=== PATIENT | male | born 1930 | race Caucasian/White ===

== ENCOUNTER 2019-09-05 10:31 | Inpatient (IN) | payer MEDICARE, OTHER ==
[~2019-09-05] VITALS: Ht 160 cm; Wt 63.5 kg
--- NOTE | 2019-09-05 19:30 | NUR ---
Patient received in bed, with family at bedside. Alert and oriented x 4. No C/O pain or SOB at this time. Original dressing intact on left hip. Skin tear on left hand. Dressing changed and wound care consult ordered. Patient medication sent to pharmacy. MRSA swab done. Urinal at bedside for bathroom needs. Call light and frequently used times within reach. Will continue to monitor for improvement.
[2019-09-05] MEDS ORDERED: OMEG-153 PO (19:56)
[2019-09-05] MEDS ORDERED: TRAM50TA2 PO (19:56)
[2019-09-05] MEDS ORDERED: AMLO5TAB9 PO (19:56)
[2019-09-05] MEDS ORDERED: LIDO1ADH44 TP (19:56)
[2019-09-05] MEDS ORDERED: GABA-532 PO (19:56)
[2019-09-05] MEDS ORDERED: DOCU100C36 PO (19:56)
[2019-09-05] MEDS ORDERED: MULT-1196 PO (19:56)
[2019-09-05] MEDS ORDERED: FLUT1DIS27 IH (19:56)
[2019-09-05] MEDS ORDERED: TIOT18CA3 IH (19:56)
[2019-09-05] MEDS ORDERED: UBID10CA4 PO (19:56)
[2019-09-05] MEDS ORDERED: METH500T6 PO (19:56)
[2019-09-05] MEDS ORDERED: OLME20TA13 PO (19:56)
[2019-09-05] MEDS ORDERED: OMEP20TA20 PO (19:56)
[2019-09-05] MEDS ORDERED: ACET-73 PO (19:56)
[2019-09-05] MEDS ORDERED: POTA8TAB3 PO (19:56)
[2019-09-05] MEDS ORDERED: ENOX40DI SQ (19:56)
[2019-09-05 20:00] VITALS: BP 100/65
[2019-09-05] MEDS ORDERED: METHOCARBAMOL 500 MG TABLET PO PRN (21:45)
[2019-09-06 05:53] VITALS: BP 137/63
[2019-09-06] MEDS: ACETAMINOPHEN 325 MG TABLET PO PRN ×2 (05:58→21:52)
[2019-09-06] MEDS: AMLODIPINE 5 MG TABLET PO SCH ×2 (08:06→17:24)
[2019-09-06] MEDS: DOCUSATE SODIUM 100 MG CAPSULE PO SCH ×2 (08:06→17:23)
[2019-09-06] MEDS ORDERED: Medication Not On Formulary EA (Potassium Chloride (Klor-Con 8) 8 MEQ) PO SCH (09:00)
[2019-09-06] MEDS ORDERED: Medication Not On Formulary EA (Salmon Oil/Omega-3 Fatty Acids (Fish Oil 500 Mg Softgel) PO SCH (09:00)
[2019-09-06] MEDS ORDERED: Medication Not On Formulary EA (Multivit-Min/FA/Lycopen/Lutein (Centrum Silver Men Table PO SCH (09:00)
[2019-09-06] MEDS ORDERED: FLUTICASONE/SALMETEROL 100/50 1 INH DISK.W.DEV IH SCH (09:00)
[2019-09-06] MEDS ORDERED: MULTIVIT, IRON, MIN NO. 8, FA TABLET PO SCH (09:00)
[2019-09-06] MEDS: OMEGA-3 FATTY ACIDS/FISH OIL CAPSULE PO SCH (09:17)
[2019-09-06] MEDS: FLUTICASONE/VILANTEROL 1 EACH BLST.W.DEV INH SCH (09:17)
[2019-09-06 09:41] LABS: BASOPHILS % (AUTO) 0.6 % (0.0-2.0); EOSINOPHILS # (AUTO) 0.3 K/uL (0.0-0.7); EOSINOPHILS % (AUTO) 6.7 % (0.0-7.0); HEMATOCRIT 28.3 % (36.7-47.1); HEMOGLOBIN 9.5 g/dL (12.5-16.3); LYMPHOCYTES # (AUTO) 1.1 K/uL (20.0-40.0); LYMPHOCYTES % (AUTO) 23.5 % (20.5-51.5); MEAN CORPUSCULAR HGB CONC 33 g/dL (32.5-36.3); MEAN CORPUSCULAR VOLUME 92.8 fL (73.0-96.2); MONOCYTES # (AUTO) 0.5 K/uL (2.0-10.0); MONOCYTES % (AUTO) 10.3 % (0.0-11.0); NEUTROPHILS # (AUTO) 2.9 K/uL (1.8-8.9); NEUTROPHILS % (AUTO) 58.9 % (38.5-71.5); PLATELET COUNT (AUTO) 218 K/uL (152-348); RED BLOOD CELL COUNT(AUTO) 3.05 MIL/uL (4.06-5.63); WHITE BLOOD COUNT (AUTO) 4.9 K/uL (3.6-10.2)
[2019-09-06 09:58] LABS: THYROID STIMULATING HORMONE 0.771 mIU/mL (0.358-3.740)
[2019-09-06] MEDS ORDERED: LAMISIL TOP PRN (10:00)
[2019-09-06 10:16] LABS: ALANINE AMINOTRANSFERASE 28 U/L (16-63); ALKALINE PHOSPHATASE 172 U/L (50-136); ASPARTATE AMINOTRANSFERASE 29 U/L (15-37); BILIRUBIN,TOTAL 0.5 mg/dL (0.2-1.0); CARBON DIOXIDE 25 mmol/L (21-32); CHLORIDE 102 mmol/L (98-107); CHOLESTEROL 156 mg/dL (<200); GLUCOSE 105 mg/dL (74-106); HDL CHOLESTEROL 40 mg/dL (40-60); MAGNESIUM 1.9 mg/dL (1.8-2.4); PHOSPHOROUS 3.5 mg/dL (2.5-4.9); POTASSIUM 4.2 mmol/L (3.5-5.1); TOTAL PROTEIN, SERUM 5.9 g/dL (6.4-8.2); TRIGLYCERIDES 82 MG/DL (30-150); UREA NITROGEN, BLOOD 16 mg/dL (7-18)
[2019-09-06] MEDS ORDERED: ASPIRIN 81 MG TAB.CHEW PO ONE (11:00)
[2019-09-06] MEDS ORDERED: Z GUARD REMEDY PASTE 57 GM TUBE TOP PRN (11:45)
--- NOTE | 2019-09-06 11:54 | NUR ---
WOUND CARE CONSULT: PT PRESENTS WITH LEFT HIP DRESSING WHICH IS DRY AND INTACT WITH SOME SHADOW AT DISTAL EDGE, NO SURROUNDING REDNESS, PRESENT ON ADMISSION. PT ALSO NOTED TO HAVE LEFT HAND SKIN TEAR, PRESENT ON ADMISSION. PERIANAL AREA AND GLUTEAL CREASE SHOW SOME SKIN IRRITATION. RECOMMENDATIONS MADE FOR WOUND CARE AND SKIN PROTECTION. DEFER TO SURGEON FOR SURGICAL SITE. WILL SEE PRN. PT IS CONTINENT AND INDEPENDENT WITH BED MOBILITY. CURRENT TRACIE SCORE IS 17. Addendum: 09/06/19 at 1156 by RYAN WELCH RN Amended: Links added.
--- NOTE | 2019-09-06 12:07 | NUR ---
Patient seen and examined by wound nurse with for left hand skin tear/ avulsion. ordered xeroform and covered with bordered gauze. will continue monitor
--- NOTE | 2019-09-06 12:09 | NUR ---
Patient wound nurse ordered Z-guard for crease in sacrum for protection. skin intact. will continue monitor
[2019-09-06] MEDS: Z GUARD REMEDY PASTE 57 GM TUBE TOP SCH ×2 (12:10→20:58)
[2019-09-06] MEDS: POTASSIUM CHLORIDE 8 MEQ TAB.PRT.SR PO SCH (12:15)
[2019-09-06 15:50] VITALS: BP 137/61
--- NOTE | 2019-09-06 16:13 | NUR ---
INTERDISCIPLINARY TEAM CONFERENCE
[2019-09-06] MEDS: DIFLUPREDNATE RIGHTEYE SCH (17:24)
[2019-09-06] MEDS ORDERED: PATIENT MAY USE OWN MED- MD OK PO SCH (18:45)
[2019-09-06 20:30] VITALS: BP 126/61
[2019-09-06] MEDS: ATORVASTATIN 40 MG TABLET PO SCH (20:40)
[2019-09-06] MEDS: GABAPENTIN 100 MG CAPSULE PO SCH (20:41)
[2019-09-06] MEDS: CENTRUM SILVER PO SCH (20:41)
[2019-09-06] MEDS: RIVAROXABAN 10 MG TABLET PO SCH (20:43)
[2019-09-06] MEDS: COENZYME Q10 200 MG PO SCH (20:43)
[2019-09-06] MEDS: [UNRECOGNIZED DRUG - OTHER] PO SCH (20:55)
[2019-09-06] MEDS ORDERED: ENOXAPARIN SODIUM 40 MG/0.4 ML DISP.SYRIN SQ SCH (21:00)
[2019-09-06] MEDS ORDERED: FLUTICASONE/SALMETEROL 250/50 INHALER INH SCH (21:00)
--- NOTE | 2019-09-07 05:29 | NUR ---
Patient alert and oriented x4. compliant with care and meds. 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 tolerated po meds well. needs attended. voiding in urinal. fall precautions maintained. siderails up for safety. right hip dressing clean dry and intact. will monitor patient.
[2019-09-07 05:51] VITALS: BP 117/66
[2019-09-07] MEDS: PRILOSEC 20 MG PO SCH (06:21)
--- NOTE | 2019-09-07 07:24 | NUR ---
Nurse Notes: received report from the night nurse, Trudi Diehl RN, Patient is asleep, in no respiratory distress, No complaints of pain given.
[2019-09-07 07:30] VITALS: BP 124/60
[2019-09-07] MEDS: ACETAMINOPHEN 325 MG TABLET PO PRN (08:20)
--- NOTE | 2019-09-07 08:20 | NUR ---
Nurse Notes:' medicated for pain earlier with tylenol
[2019-09-07] MEDS: LIDOCAINE 5% PATCH TD SCH (08:27)
[2019-09-07] MEDS ORDERED: CENTRUM SILVER PO SCH (09:00)
[2019-09-07] MEDS: DOCUSATE SODIUM 100 MG CAPSULE PO SCH ×2 (09:00→17:00)
[2019-09-07] MEDS: CENTRUM SILVER PO SCH ×2 (09:31→21:25)
[2019-09-07] MEDS: AMLODIPINE 5 MG TABLET PO SCH ×2 (09:31→17:42)
[2019-09-07] MEDS: ASPIRIN EC 81 MG TABLET.DR PO SCH (09:31)
[2019-09-07] MEDS: [UNRECOGNIZED DRUG - OTHER] PO SCH (09:32)
[2019-09-07] MEDS: POTASSIUM CHLORIDE 8 MEQ TAB.PRT.SR PO SCH (09:32)
[2019-09-07] MEDS: OMEGA-3 FATTY ACIDS/FISH OIL CAPSULE PO SCH (09:32)
[2019-09-07] MEDS: DIFLUPREDNATE RIGHTEYE SCH ×2 (09:35→17:43)
[2019-09-07] MEDS: FLUTICASONE/VILANTEROL 1 EACH BLST.W.DEV INH SCH ×2 (09:37→09:38)
[2019-09-07] MEDS: Z GUARD REMEDY PASTE 57 GM TUBE TOP SCH ×2 (09:41→21:22)
[2019-09-07 16:00] VITALS: BP 126/61
--- NOTE | 2019-09-07 19:35 | NUR ---
Nurse Notes: Report given to night nurse Rock RN, dressing intact left hip, lidocaine patches needs to be removed around 9 pm, off 12 hour off 12 hours. is at the bedside. Pain klevel 1/10, to zero.
[2019-09-07 19:58] VITALS: BP 134/57
[2019-09-07] MEDS: PATIENT'S OWN MEDICATION INH SCH (20:36)
[2019-09-07] MEDS: COENZYME Q10 200 MG PO SCH (21:22)
[2019-09-07] MEDS: ATORVASTATIN 40 MG TABLET PO SCH (21:22)
[2019-09-07] MEDS: [UNRECOGNIZED DRUG - OTHER] PO SCH (21:23)
[2019-09-07] MEDS: GABAPENTIN 100 MG CAPSULE PO SCH (21:23)
[2019-09-07] MEDS: RIVAROXABAN 10 MG TABLET PO SCH (21:27)
[2019-09-08 04:50] VITALS: BP 128/68
[2019-09-08] MEDS: PRILOSEC 20 MG PO SCH (06:26)
[2019-09-08 08:00] VITALS: BP 128/64
[2019-09-08] MEDS: ASPIRIN EC 81 MG TABLET.DR PO SCH (08:54)
[2019-09-08] MEDS: AMLODIPINE 5 MG TABLET PO SCH ×2 (08:55→17:06)
[2019-09-08] MEDS: PATIENT'S OWN MEDICATION INH SCH ×2 (08:55→20:54)
[2019-09-08] MEDS: DOCUSATE SODIUM 100 MG CAPSULE PO SCH ×2 (08:56→17:05)
[2019-09-08] MEDS: [UNRECOGNIZED DRUG - OTHER] PO SCH (08:57)
[2019-09-08] MEDS: POTASSIUM CHLORIDE 8 MEQ TAB.PRT.SR PO SCH (08:57)
[2019-09-08] MEDS: LIDOCAINE 5% PATCH TD SCH (08:58)
[2019-09-08] MEDS: OMEGA-3 FATTY ACIDS/FISH OIL CAPSULE PO SCH (08:58)
[2019-09-08] MEDS: DIFLUPREDNATE RIGHTEYE SCH ×2 (08:58→17:07)
[2019-09-08] MEDS: Z GUARD REMEDY PASTE 57 GM TUBE TOP SCH ×2 (08:59→20:49)
[2019-09-08] MEDS: CENTRUM SILVER PO SCH ×2 (08:59→20:51)
[2019-09-08] MEDS: ACETAMINOPHEN 325 MG TABLET PO PRN ×2 (09:46→22:04)
--- NOTE | 2019-09-08 15:38 | NUR ---
INDIVIDUALIZE OVERALL PLAN OF CARE
--- NOTE | 2019-09-08 17:46 | NUR ---
patient is alert, oriented x4, no distress noted, participated with PT,OT, tolerated well
[2019-09-08 17:57] VITALS: BP 134/61
--- NOTE | 2019-09-08 19:40 | NUR ---
Patient received in bed, AAO x4. Not in acute distress or SOB. Able to make needs known. On room air. No Complain of pain at this time. His at the bedside. Physical assessment done. Fall prevention observed. Safety measures maintained. Bed in low and lock position, alarm on, side rails up x2 for safety. Call light and frequently used items within reach. Continue to monitor.
[2019-09-08] MEDS: ATORVASTATIN 40 MG TABLET PO SCH (20:48)
[2019-09-08] MEDS: GABAPENTIN 100 MG CAPSULE PO SCH (20:49)
[2019-09-08] MEDS: [UNRECOGNIZED DRUG - OTHER] PO SCH (20:50)
[2019-09-08] MEDS: COENZYME Q10 200 MG PO SCH (20:51)
[2019-09-08] MEDS: RIVAROXABAN 10 MG TABLET PO SCH (20:55)
[2019-09-08 21:45] VITALS: BP 146/60
--- NOTE | 2019-09-08 21:50 | NUR ---
Patient asked for blood pressure medication Norvasc 5 mg tab that was due at 1700, stated, "I don't have my blood pressure med at 5 pm". Checked the medication record on the computer and reassured patient that he already had it at 1722. Rechecked his BP:133/60. Explained about his PRN medication if it is needed. Patient didn't get convinced, started yelling and fighting. Tried to make him calm, no success, insisted he wanted Norvasc. Contacted [facility] on-call, Demetrius PHOTO COLORER mentioned no extra dose and he will talk to patient tomorrow. Explained everything again, still agitated, but able to be convinced. Continue monitor.
[2019-09-09 04:00] VITALS: BP 128/60
[2019-09-09] MEDS: PRILOSEC 20 MG PO SCH (06:13)
[2019-09-09] MEDS: PATIENT'S OWN MEDICATION INH SCH ×2 (07:57→20:19)
[2019-09-09] MEDS: FLUTICASONE/VILANTEROL 1 EACH BLST.W.DEV INH SCH (08:05)
[2019-09-09] MEDS: ASPIRIN EC 81 MG TABLET.DR PO SCH (08:06)
[2019-09-09] MEDS: LIDOCAINE 5% PATCH TD SCH (08:06)
[2019-09-09] MEDS: DOCUSATE SODIUM 100 MG CAPSULE PO SCH ×2 (08:06→16:40)
[2019-09-09] MEDS: OMEGA-3 FATTY ACIDS/FISH OIL CAPSULE PO SCH (08:07)
[2019-09-09] MEDS: POTASSIUM CHLORIDE 8 MEQ TAB.PRT.SR PO SCH (08:07)
[2019-09-09] MEDS: AMLODIPINE 5 MG TABLET PO SCH ×2 (08:07→16:40)
[2019-09-09] MEDS: DIFLUPREDNATE RIGHTEYE SCH ×2 (08:07→16:41)
[2019-09-09] MEDS: CENTRUM SILVER PO SCH ×2 (08:08→21:15)
[2019-09-09] MEDS: Z GUARD REMEDY PASTE 57 GM TUBE TOP SCH ×2 (08:09→21:24)
[2019-09-09] MEDS: ACETAMINOPHEN 325 MG TABLET PO PRN ×2 (10:30→23:20)
[2019-09-09 10:36] VITALS: BP 118/55
--- NOTE | 2019-09-09 13:15 | NUR ---
PATIENT STILL NOTED WITH YELLING, AND SCREAMING ABOUT HIS MEDICATIONS ARE NOT GIVEN THE WAY HE WANTS, HAD A LENGTHY TALK WITH PATIENT IN PRESENCE OF HIS REGARDING HIS MEDICATIONS PREFERENCES. REMINDED PATIENT THAT NORVASC WAS GIVEN TO HIM YESTERDAY TWICE A DAY ORDERED, THE EVENING DOSE WAS GIVEN WHILE HIS WAS PRESENT DINNER TIME, AND BEFORE THE MEDICATION WAS GIVEN, AND PATIENT BOTH UNDERSTOOD WHAT WAS GIVEN, PATIENT STATED HE RECALLS IT. PATIENT STILL FIGHTING ABOUT HIS LIPITOR 80MG AND BENICAR IN THE MORNING, EXPLAINED PATIENT ABOUT SIDE EFFECTS AND CHOLESTEROL LEVEL AND HIS BLOOD PRESSURE READINGS, AND HE IS CURRENTLY ON 40MG OF LIPITOR, RECOMMENDED BY PHYSICIAN. 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 AT BEDSIDE, TRIED TO CALM HIM DOWN WELL, BUT NOT EFFECTIVE, ADDRESSED PATIENT CONCERN TO CLUB WAITER/WAITRESS REGINA WITH ORDERS TO START LIPITOR 80MG AND BENICAR 20, WHEN AVAILABLE, PATIENT WANTS TO TAKE HIS OWN MEDICATION, AGREED TO BRING BOTH MEDICATIONS FROM HOME TOMORROW.
[2019-09-09 17:45] VITALS: BP 120/61
[2019-09-09 19:51] VITALS: BP 131/53
[2019-09-09] MEDS: ATORVASTATIN 40 MG TABLET PO SCH (21:15)
[2019-09-09] MEDS: [UNRECOGNIZED DRUG - OTHER] PO SCH (21:16)
[2019-09-09] MEDS: COENZYME Q10 200 MG PO SCH (21:16)
[2019-09-09] MEDS: GABAPENTIN 100 MG CAPSULE PO SCH (21:17)
[2019-09-09] MEDS: RIVAROXABAN 10 MG TABLET PO SCH (21:19)
[2019-09-10 06:24] VITALS: BP 152/68
[2019-09-10] MEDS: PRILOSEC 20 MG PO SCH (06:38)
[2019-09-10 08:00] VITALS: BP 139/61
[2019-09-10] MEDS: PATIENT'S OWN MEDICATION INH SCH ×2 (08:25→20:24)
[2019-09-10] MEDS: OMEGA-3 FATTY ACIDS/FISH OIL CAPSULE PO SCH (08:26)
[2019-09-10] MEDS: ASPIRIN EC 81 MG TABLET.DR PO SCH (08:26)
[2019-09-10] MEDS: AMLODIPINE 5 MG TABLET PO SCH ×2 (08:26→17:00)
[2019-09-10] MEDS: DOCUSATE SODIUM 100 MG CAPSULE PO SCH ×2 (08:26→17:09)
[2019-09-10] MEDS: CENTRUM SILVER PO SCH ×2 (08:27→20:26)
[2019-09-10] MEDS: POTASSIUM CHLORIDE 8 MEQ TAB.PRT.SR PO SCH (08:27)
[2019-09-10] MEDS: DIFLUPREDNATE RIGHTEYE SCH ×2 (08:29→17:09)
[2019-09-10] MEDS: [UNRECOGNIZED DRUG - OTHER] PO SCH ×2 (08:32→20:27)
[2019-09-10] MEDS: LIDOCAINE 5% PATCH TD SCH (08:33)
[2019-09-10] MEDS: ACETAMINOPHEN 325 MG TABLET PO PRN ×2 (08:36→20:24)
[2019-09-10] MEDS: Z GUARD REMEDY PASTE 57 GM TUBE TOP SCH ×2 (10:37→20:26)
--- NOTE | 2019-09-10 13:05 | NUR ---
Received patient in bed awake, Pt. is A &O x 4. No acute distress noted. VS taken and stable for patient. Patient stated "I will tell you how you will give me my medications" Morning medications administered as ordered and explained to patient one by one. patient took due meds and thanked for explaining. Patient refused treatment on right hand. Patient noted screaming and getting upset at times when giving care. Needs attended, safety measures in place, call light left at bed side and will continue with care.
[2019-09-10 15:45] VITALS: BP 102/42
[2019-09-10 19:45] VITALS: BP 92/45
--- NOTE | 2019-09-10 20:00 | NUR ---
Received patient laying in bed. No acute distress noted. A/O x 4. In room air. Dressing on the left hip C/D/I. Safety initiated. Bed alarm on. Will closely monitor.
[2019-09-10] MEDS: COENZYME Q10 200 MG PO SCH (20:24)
[2019-09-10] MEDS: ATORVASTATIN 40 MG TABLET PO SCH (20:24)
[2019-09-10] MEDS: GABAPENTIN 100 MG CAPSULE PO SCH (20:25)
[2019-09-10] MEDS: RIVAROXABAN 10 MG TABLET PO SCH (20:26)
[2019-09-11 04:58] VITALS: BP 135/81
--- NOTE | 2019-09-11 05:37 | NUR ---
Patient slept t/o shift. Denies pain or SOB. Vital signs stable. No temperature. Dressing on the left hip, C/D/I. Safety and comfort measures maintained t/o shift. All meds given as ordered. All needs met.
[2019-09-11] MEDS: PRILOSEC 20 MG PO SCH (06:20)
[2019-09-11 07:41] VITALS: BP 130/55
[2019-09-11] MEDS: POTASSIUM CHLORIDE 8 MEQ TAB.PRT.SR PO SCH (08:36)
[2019-09-11] MEDS: OMEGA-3 FATTY ACIDS/FISH OIL CAPSULE PO SCH (08:36)
[2019-09-11] MEDS: [UNRECOGNIZED DRUG - OTHER] PO SCH ×2 (08:36→20:21)
[2019-09-11] MEDS: ASPIRIN EC 81 MG TABLET.DR PO SCH (08:36)
[2019-09-11] MEDS: LIDOCAINE 5% PATCH TD SCH (08:36)
[2019-09-11] MEDS: CENTRUM SILVER PO SCH ×2 (08:36→21:00)
[2019-09-11] MEDS: DOCUSATE SODIUM 100 MG CAPSULE PO SCH ×2 (08:37→17:11)
[2019-09-11] MEDS: AMLODIPINE 5 MG TABLET PO SCH ×2 (08:37→17:11)
[2019-09-11] MEDS: DIFLUPREDNATE RIGHTEYE SCH ×2 (08:38→17:09)
[2019-09-11] MEDS: PATIENT'S OWN MEDICATION INH SCH ×2 (08:45→20:23)
[2019-09-11] MEDS: ACETAMINOPHEN 325 MG TABLET PO PRN ×2 (08:45→16:34)
[2019-09-11] MEDS: Z GUARD REMEDY PASTE 57 GM TUBE TOP SCH ×2 (09:29→21:24)
--- NOTE | 2019-09-11 10:49 | NUR ---
PATIENT DOES NOT WANT TO TAKE BENICAR ANYMORE, AND DOES NOT WANT TO SUPPLY IT, BLOOD PRESSURE IS WELL CONTROLLED, DISCONTINUED BENICAR, APPROVED WITH MD NELSON.
[2019-09-11 15:36] VITALS: BP 122/53
--- NOTE | 2019-09-11 19:00 | NUR ---
PATIENT ALERT ORIENTED, NO SOB NO CHEST PAIN, OXYGEN SAT WNL, COMPLAIN OF MILD GEN BODY PAIN, WILL MEDICATED ORDERED, CONT TO MONITOR.
[2019-09-11] MEDS: GABAPENTIN 100 MG CAPSULE PO SCH (20:21)
[2019-09-11] MEDS: COENZYME Q10 200 MG PO SCH (20:21)
[2019-09-11] MEDS: LIPITOR 80 MG PO SCH (20:25)
[2019-09-11] MEDS: RIVAROXABAN 10 MG TABLET PO SCH (20:31)
[2019-09-11 20:33] VITALS: BP 118/58
[2019-09-12] MEDS: ACETAMINOPHEN 325 MG TABLET PO PRN ×2 (02:42→21:22)
[2019-09-12 05:52] VITALS: BP 130/60
--- NOTE | 2019-09-12 06:16 | NUR ---
PATIENT SLEPT MOST OF THE NIGHT, NO SOB NO CHEST PAIN. PATIENT OXYGEN SAT WNL. PATIENT HAS NO FURTHER COMPLAIN OF GEN BODY PAIN, WILL CONT TO MONITOR.
[2019-09-12] MEDS: PRILOSEC 20 MG PO SCH (06:49)
[2019-09-12] MEDS: TRAMADOL HCL 50 MG TABLET PO PRN (07:05)
[2019-09-12 07:51] VITALS: BP 144/61
[2019-09-12] MEDS: OMEGA-3 FATTY ACIDS/FISH OIL CAPSULE PO SCH (08:41)
[2019-09-12] MEDS: ASPIRIN EC 81 MG TABLET.DR PO SCH (08:41)
[2019-09-12] MEDS: AMLODIPINE 5 MG TABLET PO SCH ×2 (08:41→16:35)
[2019-09-12] MEDS: POTASSIUM CHLORIDE 8 MEQ TAB.PRT.SR PO SCH (08:41)
[2019-09-12] MEDS: DOCUSATE SODIUM 100 MG CAPSULE PO SCH ×2 (08:41→16:35)
[2019-09-12] MEDS: CENTRUM SILVER PO SCH ×2 (08:42→20:43)
[2019-09-12] MEDS: PATIENT'S OWN MEDICATION INH SCH ×2 (08:42→20:40)
[2019-09-12] MEDS: [UNRECOGNIZED DRUG - OTHER] PO SCH ×2 (08:43→20:45)
[2019-09-12] MEDS: DIFLUPREDNATE RIGHTEYE SCH ×2 (08:43→16:36)
[2019-09-12] MEDS: LIDOCAINE 5% PATCH TD SCH (08:43)
[2019-09-12] MEDS: Z GUARD REMEDY PASTE 57 GM TUBE TOP SCH ×2 (08:44→20:44)
[2019-09-12] MEDS ORDERED: PATIENT MAY USE OWN MED- MD OK PO SCH (09:00)
--- NOTE | 2019-09-12 12:56 | NUR ---
Received patient awake and alert and oriented x 4 in bed. No s/s acute distress notes. On RA via NC with SpO2 of 95%, no SOB. Kept clean and dry at all times. LT. hip dressing C/D/I. Wound care rendered to as ordered. Safety and comfort provided at all times. Call light within reached. All due medications administered as ordered and tolerated well with no ASE. No s/sx of bleeding, currently on Xarelto. Continue plan of care. Will continue to monitor.
[2019-09-12 15:54] VITALS: BP_SYST 94; BP_SYST 96; BP_DIAS 44
--- NOTE | 2019-09-12 18:21 | NUR ---
No significant change during this shift. Remain compliant with nursing care and medications regimen. Held PM Amlodipine due low BP, encouraged po fluid intake as tolerated and elevated leg. Pt. asymptomatic, no c/o lightheadedness or dizziness. Skin care rendered, no new skin condition. Lt hand skin tear resolving, dry scab now and [place]. Safety measures and fall precaution in place. Will endorse to oncoming shift accordingly.
[2019-09-12 19:46] VITALS: BP 124/51
[2019-09-12] MEDS: COENZYME Q10 200 MG PO SCH (20:43)
[2019-09-12] MEDS: LIPITOR 80 MG PO SCH (20:43)
[2019-09-12] MEDS: GABAPENTIN 100 MG CAPSULE PO SCH (20:44)
[2019-09-12] MEDS: RIVAROXABAN 10 MG TABLET PO SCH (20:48)
[2019-09-13 04:38] VITALS: BP 108/40
--- NOTE | 2019-09-13 04:57 | NUR ---
awake alert and oriented x4. needs attended. kept comfortable. denies any pain nor any discomfort. compliant with meds. siderails up for safety. VSS. needs attended. will monitor patient.
[2019-09-13] MEDS: PRILOSEC 20 MG PO SCH (06:20)
[2019-09-13] MEDS: ACETAMINOPHEN 325 MG TABLET PO PRN (06:57)
[2019-09-13 07:54] VITALS: BP 132/59
[2019-09-13] MEDS: DOCUSATE SODIUM 100 MG CAPSULE PO SCH ×2 (08:06→18:06)
[2019-09-13] MEDS: ASPIRIN EC 81 MG TABLET.DR PO SCH (08:06)
[2019-09-13] MEDS: AMLODIPINE 5 MG TABLET PO SCH ×2 (08:07→18:06)
[2019-09-13] MEDS: POTASSIUM CHLORIDE 8 MEQ TAB.PRT.SR PO SCH (08:08)
[2019-09-13] MEDS: OMEGA-3 FATTY ACIDS/FISH OIL CAPSULE PO SCH (08:08)
[2019-09-13] MEDS: CENTRUM SILVER PO SCH ×2 (08:08→21:04)
[2019-09-13] MEDS: [UNRECOGNIZED DRUG - OTHER] PO SCH ×2 (08:09→21:06)
[2019-09-13] MEDS: LIDOCAINE 5% PATCH TD SCH (08:09)
[2019-09-13] MEDS: DIFLUPREDNATE RIGHTEYE SCH ×2 (08:10→18:05)
[2019-09-13] MEDS: Z GUARD REMEDY PASTE 57 GM TUBE TOP SCH ×2 (08:10→21:07)
[2019-09-13] MEDS: PATIENT'S OWN MEDICATION INH SCH ×2 (08:13→21:03)
[2019-09-13] MEDS: TRAMADOL HCL 50 MG TABLET PO PRN (10:44)
[2019-09-13 15:41] VITALS: BP 128/58
--- NOTE | 2019-09-13 15:58 | NUR ---
INTERDISCIPLINARY TEAM CONFERENCE
--- NOTE | 2019-09-13 19:40 | NUR ---
PATIENT LYING O BED COMFORTABLY . NO C/O OF PAIN OR ANY DISCOMFORT NOTED. WILL CONTINUE TO MONITOR
[2019-09-13 20:39] VITALS: BP 133/66
[2019-09-13] MEDS: RIVAROXABAN 10 MG TABLET PO SCH (21:04)
[2019-09-13] MEDS: LIPITOR 80 MG PO SCH (21:05)
[2019-09-13] MEDS: COENZYME Q10 200 MG PO SCH (21:05)
[2019-09-13] MEDS: GABAPENTIN 100 MG CAPSULE PO SCH (21:05)
[2019-09-14] MEDS: ACETAMINOPHEN 325 MG TABLET PO PRN ×3 (03:13→21:02)
[2019-09-14 04:00] VITALS: BP 122/39
[2019-09-14] MEDS: PRILOSEC 20 MG PO SCH (06:20)
--- NOTE | 2019-09-14 06:36 | NUR ---
patient sleeping intermittently aroursable to verbal commands. no discomfort noted at this time . Kept clean and dry.
[2019-09-14 07:40] VITALS: BP 134/57
[2019-09-14] MEDS: POTASSIUM CHLORIDE 8 MEQ TAB.PRT.SR PO SCH (08:04)
[2019-09-14] MEDS: DIFLUPREDNATE RIGHTEYE SCH ×2 (08:04→18:06)
[2019-09-14] MEDS: ASPIRIN EC 81 MG TABLET.DR PO SCH (08:04)
[2019-09-14] MEDS: DOCUSATE SODIUM 100 MG CAPSULE PO SCH ×2 (08:04→18:05)
[2019-09-14] MEDS: OMEGA-3 FATTY ACIDS/FISH OIL CAPSULE PO SCH (08:04)
[2019-09-14] MEDS: [UNRECOGNIZED DRUG - OTHER] PO SCH ×2 (08:05→20:43)
[2019-09-14] MEDS: AMLODIPINE 5 MG TABLET PO SCH ×2 (08:07→18:05)
[2019-09-14] MEDS: LIDOCAINE 5% PATCH TD SCH (08:07)
[2019-09-14] MEDS: Z GUARD REMEDY PASTE 57 GM TUBE TOP SCH ×2 (08:10→20:53)
[2019-09-14] MEDS: PATIENT'S OWN MEDICATION INH SCH ×2 (10:45→20:42)
[2019-09-14] MEDS: CENTRUM SILVER PO SCH ×2 (12:26→20:45)
[2019-09-14 15:56] VITALS: BP 124/58
--- NOTE | 2019-09-14 19:40 | NUR ---
Patient received in bed, AAO x4. Not in acute distress or SOB. Able to make needs known. On room air. No Complain of pain at this time. Physical assessment done. Fall prevention observed. Safety measures maintained. Bed in low and lock position, alarm on, side rails up x2 for safety. Call light and frequently used items within reach. Continue to monitor.
[2019-09-14 20:19] VITALS: BP 120/57
[2019-09-14] MEDS: COENZYME Q10 200 MG PO SCH (20:44)
[2019-09-14] MEDS: LIPITOR 80 MG PO SCH (20:44)
[2019-09-14] MEDS: GABAPENTIN 100 MG CAPSULE PO SCH (20:46)
[2019-09-14] MEDS: RIVAROXABAN 10 MG TABLET PO SCH (20:50)
[2019-09-15] MEDS: ACETAMINOPHEN 325 MG TABLET PO PRN ×3 (03:54→19:36)
[2019-09-15 04:00] VITALS: BP 113/49
[2019-09-15 05:19] VITALS: BP 113/49
[2019-09-15] MEDS: PRILOSEC 20 MG PO SCH (06:52)
[2019-09-15] MEDS: PATIENT'S OWN MEDICATION INH SCH ×2 (08:37→20:37)
[2019-09-15] MEDS: DOCUSATE SODIUM 100 MG CAPSULE PO SCH ×2 (08:37→17:08)
[2019-09-15] MEDS: ASPIRIN EC 81 MG TABLET.DR PO SCH (08:38)
[2019-09-15] MEDS: AMLODIPINE 5 MG TABLET PO SCH ×2 (08:42→17:12)
[2019-09-15] MEDS: CENTRUM SILVER PO SCH ×2 (08:42→21:12)
[2019-09-15] MEDS: POTASSIUM CHLORIDE 8 MEQ TAB.PRT.SR PO SCH (08:43)
[2019-09-15] MEDS: OMEGA-3 FATTY ACIDS/FISH OIL CAPSULE PO SCH (08:43)
[2019-09-15] MEDS: [UNRECOGNIZED DRUG - OTHER] PO SCH ×2 (08:44→21:12)
[2019-09-15] MEDS: DIFLUPREDNATE RIGHTEYE SCH ×2 (08:44→17:08)
[2019-09-15] MEDS: Z GUARD REMEDY PASTE 57 GM TUBE TOP SCH ×2 (08:45→21:21)
[2019-09-15] MEDS: LIDOCAINE 5% PATCH TD SCH (08:45)
[2019-09-15 16:00] VITALS: BP 130/51
--- NOTE | 2019-09-15 19:41 | NUR ---
NOTED WITH RAISED AREA NEXT TO INCISION SITE, NO DRAINAGE NOTED, NO REDNESS NOTED, INCISION SITE IS CLEAN AND DRY, PATIENT STATED THAT RAISED AREA IS THERE SINCE SURGERY, WILL CONTINUE TO MONITOR, ENDORSED ACCORDINGLY TO FOREST ECOLOGY PROFESSOR
[2019-09-15 20:51] VITALS: BP 130/47
[2019-09-15] MEDS: COENZYME Q10 200 MG PO SCH (21:11)
[2019-09-15] MEDS: GABAPENTIN 100 MG CAPSULE PO SCH (21:11)
[2019-09-15] MEDS: RIVAROXABAN 10 MG TABLET PO SCH (21:14)
[2019-09-15] MEDS: LIPITOR 80 MG PO SCH (21:14)
[2019-09-16] MEDS: ACETAMINOPHEN 325 MG TABLET PO PRN ×3 (02:06→22:16)
--- NOTE | 2019-09-16 02:17 | NUR ---
IS BLIND ON THE RIGHT EYE AND IS EXPERIENCING PAIN TO HE RIGHTN EYE RECENELTY AND IS TAKING TYLENOL FOR THE PAIN Addendum: 09/16/19 at 0221 by WILMA WALKER RN Amended: Links added.
[2019-09-16 04:23] VITALS: BP 134/58
--- NOTE | 2019-09-16 06:10 | NUR ---
ASLEEP. WILL INFORM THE PHYSICIAN ABOUT THE PATIENT RECURRENT COMPLAINTS OF EYE PAIN AND IS REQUESTING TYLENOL FOR THE PAIN.
--- NOTE | 2019-09-16 06:48 | NUR ---
patient is asleep. prilosec dose cannot be given.patient has pain to the rightneye and was give tylenol dose and prefers to sleep currently.
[2019-09-16] MEDS: PRILOSEC 20 MG PO SCH (07:20)
[2019-09-16 08:49] VITALS: BP 151/56
[2019-09-16] MEDS: AMLODIPINE 5 MG TABLET PO SCH ×2 (08:51→16:49)
[2019-09-16] MEDS: DOCUSATE SODIUM 100 MG CAPSULE PO SCH ×2 (08:51→16:49)
[2019-09-16] MEDS: OMEGA-3 FATTY ACIDS/FISH OIL CAPSULE PO SCH (08:51)
[2019-09-16] MEDS: PATIENT'S OWN MEDICATION INH SCH ×2 (08:51→20:59)
[2019-09-16] MEDS: CENTRUM SILVER PO SCH ×2 (08:52→20:57)
[2019-09-16] MEDS: LIDOCAINE 5% PATCH TD SCH (08:52)
[2019-09-16] MEDS: POTASSIUM CHLORIDE 8 MEQ TAB.PRT.SR PO SCH (08:52)
[2019-09-16] MEDS: ASPIRIN EC 81 MG TABLET.DR PO SCH (08:52)
[2019-09-16] MEDS: [UNRECOGNIZED DRUG - OTHER] PO SCH ×2 (08:52→20:56)
[2019-09-16] MEDS: DIFLUPREDNATE RIGHTEYE SCH ×2 (08:52→16:50)
[2019-09-16] MEDS: Z GUARD REMEDY PASTE 57 GM TUBE TOP SCH ×2 (08:53→21:01)
--- NOTE | 2019-09-16 10:00 | NUR ---
Received patient awake and alert and oriented x 3 in bed. No s/s acute distress notes. Kept clean and dry at all times. Safety and comfort provided at all times. Call light within reached and will continue to monitor. All due medications administered as ordered and tolerated well with no ASE. Continue plan of care. Will continue to monitor.
[2019-09-16 16:00] VITALS: BP 127/68
[2019-09-16] MEDS: TRAMADOL HCL 50 MG TABLET PO PRN (18:14)
[2019-09-16] MEDS: GABAPENTIN 100 MG CAPSULE PO SCH (20:54)
[2019-09-16] MEDS: RIVAROXABAN 10 MG TABLET PO SCH (20:56)
[2019-09-16] MEDS: COENZYME Q10 200 MG PO SCH (20:57)
[2019-09-16] MEDS: LIPITOR 80 MG PO SCH (20:57)
[2019-09-17] MEDS: TRAMADOL HCL 50 MG TABLET PO PRN ×2 (01:58→08:56)
[2019-09-17] MEDS: ACETAMINOPHEN 325 MG TABLET PO PRN ×3 (03:43→20:35)
--- NOTE | 2019-09-17 04:58 | NUR ---
Patient received in bed, AAO x4. Not in acute distress or SOB. Able to make needs known. On room air. Complained of pain at his right eye. two times Tylenol and one time Tramadol administered. All due medications given and well tolerated. Lidocaine patch removed. Physical assessment done. Fall prevention observed. Safety measures maintained. All needs attended promptly. Bed in low and lock position, alarm on, side rails up x2 for safety. Call light and frequently used items within reach. Continue to monitor and will endorse to the day shift nurse accordingly.
[2019-09-17] MEDS: PRILOSEC 20 MG PO SCH (06:27)
[2019-09-17 07:50] VITALS: BP 141/57
[2019-09-17] MEDS: ASPIRIN EC 81 MG TABLET.DR PO SCH (08:56)
[2019-09-17] MEDS: PATIENT'S OWN MEDICATION INH SCH ×2 (08:56→20:00)
[2019-09-17] MEDS: DOCUSATE SODIUM 100 MG CAPSULE PO SCH ×2 (08:56→17:12)
[2019-09-17] MEDS: OMEGA-3 FATTY ACIDS/FISH OIL CAPSULE PO SCH (08:56)
[2019-09-17] MEDS: POTASSIUM CHLORIDE 8 MEQ TAB.PRT.SR PO SCH (08:56)
[2019-09-17] MEDS: AMLODIPINE 5 MG TABLET PO SCH ×2 (08:57→17:16)
[2019-09-17] MEDS: LIDOCAINE 5% PATCH TD SCH (08:57)
[2019-09-17] MEDS: Z GUARD REMEDY PASTE 57 GM TUBE TOP SCH ×2 (08:58→21:23)
[2019-09-17] MEDS: DIFLUPREDNATE RIGHTEYE SCH ×2 (08:58→17:14)
[2019-09-17] MEDS: [UNRECOGNIZED DRUG - OTHER] PO SCH ×2 (09:00→21:18)
[2019-09-17] MEDS: CENTRUM SILVER PO SCH ×2 (09:00→21:19)
[2019-09-17 15:54] VITALS: BP 109/48
--- NOTE | 2019-09-17 18:37 | NUR ---
Patient continue pain management prior therapy and if needed. Continue therapy for unsteady gait and ADL ability. not in distress. will continue monitor
[2019-09-17 19:44] VITALS: BP 135/60
--- NOTE | 2019-09-17 20:00 | NUR ---
Patient received into care, sitting up in bed, resting comfortably. Patient is alert/oriented x4 and has no complaints of pain at this time. Safety and fall precaution measures are in place. Call light and personal items are within reach at all times. Will continue to monitor.
[2019-09-17] MEDS: GABAPENTIN 100 MG CAPSULE PO SCH (21:16)
[2019-09-17] MEDS: COENZYME Q10 200 MG PO SCH (21:16)
[2019-09-17] MEDS: LIPITOR 80 MG PO SCH (21:18)
[2019-09-17] MEDS: RIVAROXABAN 10 MG TABLET PO SCH (21:19)
[2019-09-18] MEDS ORDERED: TRAMADOL HCL 50 MG TABLET ONE (01:34)
[2019-09-18] MEDS: TRAMADOL HCL 50 MG TABLET PO PRN (01:38)
--- NOTE | 2019-09-18 02:45 | NUR ---
Patient advised nurse that pain medication given before isn't working. Nurse explained that medication was given an hour ago but can give Tylenol if he feels his pain is unrelieved. Patient stated that he wanted the medication that was given yesterday that was "opium based." Nurse explained that he was given Ultram an hour ago, which is an opioid. Patient said he would accept the Tylenol.
[2019-09-18] MEDS: ACETAMINOPHEN 325 MG TABLET PO PRN ×3 (02:52→23:56)
[2019-09-18 04:50] VITALS: BP 137/50
[2019-09-18] MEDS: PRILOSEC 20 MG PO SCH (06:12)
--- NOTE | 2019-09-18 06:45 | NUR ---
Patient slept intermittently throughout night with complaints of pain addressed with prescribed analgesics. Patient was compliant with all aspects of care. All prescribed medications were given as ordered and tolerated well with no adverse side effects verbalized or observed. All nursing needs were addressed promptly. All safety and fall precaution measures remain in place. Call light and personal items remain within reach at all times.
[2019-09-18 07:15] LABS: BASOPHILS % (AUTO) 0.7 % (0.0-2.0); EOSINOPHILS # (AUTO) 0.2 K/uL (0.0-0.7); EOSINOPHILS % (AUTO) 4.3 % (0.0-7.0); HEMATOCRIT 31.2 % (36.7-47.1); HEMOGLOBIN 10.3 g/dL (12.5-16.3); LYMPHOCYTES # (AUTO) 1.1 K/uL (20.0-40.0); LYMPHOCYTES % (AUTO) 22.2 % (20.5-51.5); MEAN CORPUSCULAR HEMOGLOBIN 30.4 uug (23.8-33.4); MEAN CORPUSCULAR HGB CONC 33 g/dL (32.5-36.3); MONOCYTES # (AUTO) 0.4 K/uL (2.0-10.0); MONOCYTES % (AUTO) 8.2 % (0.0-11.0); NEUTROPHILS # (AUTO) 3.1 K/uL (1.8-8.9); NEUTROPHILS % (AUTO) 64.6 % (38.5-71.5); PLATELET COUNT (AUTO) 294 K/uL (152-348); RED BLOOD CELL COUNT(AUTO) 3.39 MIL/uL (4.06-5.63); WHITE BLOOD COUNT (AUTO) 4.8 K/uL (3.6-10.2)
[2019-09-18 07:22] LABS: CARBON DIOXIDE 27 mmol/L (21-32); CHLORIDE 104 mmol/L (98-107); GLUCOSE 93 mg/dL (74-106); POTASSIUM 4.1 mmol/L (3.5-5.1); UREA NITROGEN, BLOOD 13 mg/dL (7-18)
[2019-09-18 08:30] VITALS: BP 127/48
[2019-09-18] MEDS: DOCUSATE SODIUM 100 MG CAPSULE PO SCH ×2 (09:02→16:56)
[2019-09-18] MEDS: OMEGA-3 FATTY ACIDS/FISH OIL CAPSULE PO SCH (09:02)
[2019-09-18] MEDS: [UNRECOGNIZED DRUG - OTHER] PO SCH ×2 (09:02→20:42)
[2019-09-18] MEDS: CENTRUM SILVER PO SCH ×2 (09:02→20:42)
[2019-09-18] MEDS: AMLODIPINE 5 MG TABLET PO SCH ×2 (09:02→16:57)
[2019-09-18] MEDS: ASPIRIN EC 81 MG TABLET.DR PO SCH (09:02)
[2019-09-18] MEDS: DIFLUPREDNATE RIGHTEYE SCH ×2 (09:03→16:57)
[2019-09-18] MEDS: POTASSIUM CHLORIDE 8 MEQ TAB.PRT.SR PO SCH (09:03)
[2019-09-18] MEDS: PATIENT'S OWN MEDICATION INH SCH ×2 (09:03→20:45)
[2019-09-18] MEDS: LIDOCAINE 5% PATCH TD SCH (09:03)
[2019-09-18] MEDS: Z GUARD REMEDY PASTE 57 GM TUBE TOP SCH ×2 (09:04→20:41)
--- NOTE | 2019-09-18 14:07 | NUR ---
Patient continue on therapy for ambulation and ADL ability. not in distress. Continue pain management prior to therapy and if needed. will continue monitor
[2019-09-18 16:26] VITALS: BP 118/59
--- NOTE | 2019-09-18 19:45 | NUR ---
Awake during initial rounds. Denies any pain/discomforts at this time. Safety measures and fall precaution maintained. Continue care as planned.
[2019-09-18 20:22] VITALS: BP 96/117
[2019-09-18] MEDS: COENZYME Q10 200 MG PO SCH (20:38)
[2019-09-18] MEDS: GABAPENTIN 100 MG CAPSULE PO SCH (20:38)
[2019-09-18] MEDS: RIVAROXABAN 10 MG TABLET PO SCH (20:39)
[2019-09-18] MEDS: LIPITOR 80 MG PO SCH (20:39)
[2019-09-18 22:30] VITALS: BP 117/49
[2019-09-19 05:57] VITALS: BP 136/57
[2019-09-19] MEDS: PRILOSEC 20 MG PO SCH (06:15)
--- NOTE | 2019-09-19 06:41 | NUR ---
Shift End Report: VS stable. Slept well. Medicated once for complaint of eye pain with relief. No further complaint presented. Continue current rehab plan of care. No significant event reported all night.
[2019-09-19 08:00] VITALS: BP 132/61
[2019-09-19] MEDS: DOCUSATE SODIUM 100 MG CAPSULE PO SCH ×2 (08:58→17:25)
[2019-09-19] MEDS: POTASSIUM CHLORIDE 8 MEQ TAB.PRT.SR PO SCH (08:58)
[2019-09-19] MEDS: ASPIRIN EC 81 MG TABLET.DR PO SCH (08:58)
[2019-09-19] MEDS: OMEGA-3 FATTY ACIDS/FISH OIL CAPSULE PO SCH (08:58)
[2019-09-19] MEDS: DIFLUPREDNATE RIGHTEYE SCH ×2 (09:00→17:26)
[2019-09-19] MEDS: [UNRECOGNIZED DRUG - OTHER] PO SCH ×2 (09:00→21:52)
[2019-09-19] MEDS: LIDOCAINE 5% PATCH TD SCH (09:00)
[2019-09-19] MEDS: AMLODIPINE 5 MG TABLET PO SCH ×2 (09:00→17:25)
[2019-09-19] MEDS: CENTRUM SILVER PO SCH ×2 (09:00→21:53)
[2019-09-19] MEDS: Z GUARD REMEDY PASTE 57 GM TUBE TOP SCH ×2 (09:01→21:58)
[2019-09-19] MEDS: PATIENT'S OWN MEDICATION INH SCH ×2 (09:02→21:49)
[2019-09-19 15:52] VITALS: BP 116/67
[2019-09-19 20:12] VITALS: BP 123/45
[2019-09-19] MEDS: GABAPENTIN 100 MG CAPSULE PO SCH (21:50)
[2019-09-19] MEDS: RIVAROXABAN 10 MG TABLET PO SCH (21:51)
[2019-09-19] MEDS: LIPITOR 80 MG PO SCH (21:52)
[2019-09-19] MEDS: COENZYME Q10 200 MG PO SCH (21:52)
[2019-09-19] MEDS: ACETAMINOPHEN 325 MG TABLET PO PRN (22:26)
[2019-09-20] MEDS: TRAMADOL HCL 50 MG TABLET PO PRN (02:22)
--- NOTE | 2019-09-20 02:58 | NUR ---
with recurrent complaints of right eye pain. tramadol 1 tab given for pain.
[2019-09-20 04:00] VITALS: BP 124/60
[2019-09-20] MEDS ORDERED: ACETAMINOPHEN 325 MG TABLET ONE (05:40)
[2019-09-20] MEDS: ACETAMINOPHEN 325 MG TABLET PO PRN ×2 (05:46→12:51)
--- NOTE | 2019-09-20 05:48 | NUR ---
complaining of right eye pain and is crying. tylenol dose given. will inform the cardiopulmonary technician physician in am about the right eye severe pain
[2019-09-20] MEDS: PRILOSEC 20 MG PO SCH (06:14)
--- NOTE | 2019-09-20 07:12 | NUR ---
report given to the day shift RN to inform the physician that the patient has increasing pain to the right eye and he cry and shakes due to pain. needs to seen by an eent physician,
[2019-09-20 07:49] VITALS: BP 122/43
[2019-09-20] MEDS: PATIENT'S OWN MEDICATION INH SCH (08:32)
[2019-09-20] MEDS: DOCUSATE SODIUM 100 MG CAPSULE PO SCH (08:32)
[2019-09-20] MEDS: ASPIRIN EC 81 MG TABLET.DR PO SCH (08:32)
[2019-09-20 08:33] VITALS: BP 125/50
[2019-09-20] MEDS: CENTRUM SILVER PO SCH (08:33)
[2019-09-20] MEDS: OMEGA-3 FATTY ACIDS/FISH OIL CAPSULE PO SCH (08:33)
[2019-09-20] MEDS: [UNRECOGNIZED DRUG - OTHER] PO SCH (08:33)
[2019-09-20] MEDS: POTASSIUM CHLORIDE 8 MEQ TAB.PRT.SR PO SCH (08:33)
[2019-09-20] MEDS: AMLODIPINE 5 MG TABLET PO SCH (08:33)
[2019-09-20] MEDS: LIDOCAINE 5% PATCH TD SCH (08:34)
[2019-09-20] MEDS: DIFLUPREDNATE RIGHTEYE SCH (08:34)
[2019-09-20] MEDS: Z GUARD REMEDY PASTE 57 GM TUBE TOP SCH (08:35)
--- NOTE | 2019-09-20 09:00 | NUR ---
PATIENT ALERT, ORIENTED X4, VERBALLY RESPONSIVE, NO SOB, RESP EVEN NONLABORED,SKIN WARM AND DRY TO TOUCH, REASSESSED FOR RIGHT EYE PAIN, PATIENT STATED," I HAVE CHRONIC PAIN MY RIGHT EYE, I HAVE ALREADY MADE APT WITH [facility] ELVIS MCARTHUR AT [facility] ON Monday09/23/19, AT 1315, THIS DULL PAIN COMES AND GOES, TYLENOL HELPS" NO REDNESS NOTED TO EYE, NO DISCHARGE NOTED, NO DISTRESS NOTED
--- NOTE | 2019-09-20 13:48 | NUR ---
PATIENT DISCHARGED HOME WITH [facility], WITH , STABLE CONDITION, PATIET IS ALERT, ORIENTED X4, VERBALLY RESPONSIVE, AMBULATORY WITH FWW, TOLERATED MEDS AND MEALS WELL, PRESCRIPTION FAXED TO [facility], FAMILY WAS WANDERING IF PHARMACY CAN DELIVER THE MEDICATION, SPOKE TO [facility], PER PHARMACY PATIENT HAS TO ORDER DELIVERY THROUGH THE [facility], PATIENT MADE AWARE. PHARMACY NUMBER PROVIDED TO , ALL THE MEDS FROM PHARMACY GIVEN TO PATIENT, FOLLOW UP INFORMATION GIVEN TO FOR SURGEON APT ON 09/25/19, TEACHING PROVIDED TO PATIENT AND TO FOR MEDICATION AND SAFETY, PATIENT AND VERBALIZED THE UNDERSTANDING OF MEDICATIONS, FOLLOW UP. PATIENT INCISION SITE IS CLEAN AND DRY, NO DISCHARGE, NO REDNESS NOTED, PATIENT'S BELONGINGS ARE ACCOUNTED AND SIGNED.
--- NOTE | 2019-09-20 14:29 | NUR ---
CONFIRMED PATIENT APT WITH [facility] WITH [facility] FROM THE OFFICE ON Monday09/23/19, AT 1315
--- NOTE | 2019-09-20 14:35 | NUR ---
PATIENT MEDICATION FROM THE HOME GIVEN TO PATIENT, MEDS GOT FROM THE PHARMACY BOTTLES, I NUTIRENT BOTTLE, CENTRUM BOTTLE, LIPITOR BOTTLE, CO Q 10 GIVEN TO PATIENT.
== END 2019-09-20 13:18 | disposition home health service (06) | DRG 559 ==
PROVIDERS: ADMIT Physical Medicine & Rehabilitation Pain Medicine; ATTEND Physical Medicine & Rehabilitation Pain Medicine
DX: Z47.1 Aftercare following joint replacement surgery (principal); E43 Unspecified severe protein-calorie malnutrition; D68.59 Other primary thrombophilia; E87.1 Hypo-osmolality and hyponatremia; Z96.642 Presence of left artificial hip joint; E03.9 Hypothyroidism, unspecified; E78.5 Hyperlipidemia, unspecified; I10 Essential (primary) hypertension; I25.10 Atherosclerotic heart disease of native coronary artery without angina pectoris; I71.4 Abdominal aortic aneurysm, without rupture; I73.9 Peripheral vascular disease, unspecified; J44.9 Chronic obstructive pulmonary disease, unspecified; S72.002D Fracture of unspecified part of neck of left femur, subsequent encounter for closed fracture with routine healing; W01.0XXD Fall on same level from slipping, tripping and stumbling without subsequent striking against object, subsequent encounter; D64.9 Anemia, unspecified; G89.29 Other chronic pain; M54.5 Low back pain; Z91.81 History of falling; M54.10 Radiculopathy, site unspecified
CPT/HCPCS: 36415; 71045; 82652; 83735; 84100; 84443; 85025; 94640

== ENCOUNTER 2019-11-04 16:22 | Inpatient (IN) | payer MEDICARE, OTHER ==
[~2019-11-04] VITALS: Ht 170.2 cm; Wt 65.3 kg
[~2019-11-04 16:22] MED LIST: ACET-73 PO; AMLO5TAB9 PO; DOCU100C36 PO; ENOX40DI SQ; FLUT1DIS27 IH; GABA-532 PO; LIDO1ADH44 TP; METH500T6 PO; MULT-1196 PO; OLME20TA13 PO; OMEG-153 PO; OMEP20TA20 PO; POTA8TAB3 PO; TIOT18CA3 IH; TRAM50TA2 PO; UBID10CA4 PO
--- NOTE | 2019-11-04 20:00 | NUR ---
Admitted patient from [facility] via WC, accompanied by . AAO x 4, TELIDA, able to make needs known. Able to transfer self with FWW to bed with close supervision. Denied any apin at this time but tends to scream when moved. Routine admission care done. Plan of care initiated.
[2019-11-04 20:33] VITALS: BP 130/52
[2019-11-04] MEDS ORDERED: ATOR80TA PO (20:51)
[2019-11-04] MEDS ORDERED: ACET-73 PO (20:51)
[2019-11-04] MEDS ORDERED: DOCU100C36 PO (20:51)
[2019-11-04] MEDS ORDERED: TIOT4MIS5 IH (20:51)
[2019-11-04] MEDS ORDERED: FLUT1DIS28 IH (20:51)
[2019-11-04] MEDS ORDERED: POSA100T PO (20:51)
[2019-11-04] MEDS ORDERED: DIFL5DRO OP (20:51)
[2019-11-04] MEDS ORDERED: ENOX40DI SQ (20:51)
[2019-11-04] MEDS ORDERED: AMLO5TAB9 PO (20:51)
[2019-11-04] MEDS ORDERED: ASPI-605 PO (20:51)
[2019-11-04] MEDS ORDERED: OLME20TA13 PO (20:51)
[2019-11-04] MEDS ORDERED: DOCO1CAP6 PO (20:51)
[2019-11-04] MEDS ORDERED: POTA10CA43 PO (20:51)
[2019-11-04] MEDS ORDERED: MULT-1168 PO (20:51)
[2019-11-04] MEDS ORDERED: OMEP20CA15 PO (20:51)
[2019-11-04] MEDS ORDERED: TRAM50TA2 PO (20:51)
--- NOTE | 2019-11-04 21:15 | NUR ---
Feeling cold, provided warm blankets, 1, 2, 3, warm blankets not enough to keep him warm, frequently calling, total of 7 warm blankets provided and kept him to stop calling. Slept comfortably, refused to be turn/ touch.
--- NOTE | 2019-11-04 21:45 | NUR ---
PATIENT REFUSED TO HAVE WOUND/INCISION CHECKED/HAVE A PICTURE THIS TIME, CLAIMING HE'S VERY COLD DESPITE 7 WARM BLANKETS PROVIDED. WILL ENDORSE TO ONCOMING SHIFT.
[2019-11-04] MEDS ORDERED: ACETAMINOPHEN ES 500 MG TABLET PO ONE (23:45)
--- NOTE | 2019-11-05 02:00 | NUR ---
Patient moved via bed to Room 118, very loud, noisy, constantly calling, complaining a lot, needy. Patients complaining about the noise that they bothered them a lot, unable to sleep.
[2019-11-05 05:36] VITALS: BP 123/52
--- NOTE | 2019-11-05 06:28 | NUR ---
Shift End Report: VS stable. Medicated once for complaint of pain with relief. No further complaint presented. All needs attended and met. Continue care as planned.
[2019-11-05 08:40] VITALS: BP 129/52
[2019-11-05] MEDS ORDERED: [UNRECOGNIZED DRUG - OTHER] PO SCH (09:00)
[2019-11-05] MEDS ORDERED: Medication Not On Formulary EA (Mu-Vits-Min Th/Lycopene/Lutein (Centrum Silver Tablet) 1 PO SCH (09:00)
[2019-11-05] MEDS ORDERED: POTASSIUM CHLORIDE 10 MEQ TAB.PRT.SR PO SCH (09:00)
[2019-11-05] MEDS ORDERED: EPA PO SCH (09:00)
[2019-11-05] MEDS ORDERED: DOCOSAHEXANOIC ACID PO SCH (09:00)
[2019-11-05] MEDS ORDERED: FLUTICASONE/SALMETEROL 250/50 INHALER IH SCH (09:00)
[2019-11-05] MEDS: ENOXAPARIN SODIUM 40 MG/0.4 ML DISP.SYRIN SQ SCH (09:12)
[2019-11-05] MEDS: ASPIRIN EC 81 MG TABLET.DR PO SCH (09:17)
[2019-11-05] MEDS: AMLODIPINE 5 MG TABLET PO SCH ×2 (09:17→21:05)
[2019-11-05] MEDS: DOCUSATE SODIUM 100 MG CAPSULE PO SCH ×2 (09:17→16:29)
[2019-11-05] MEDS: TRAMADOL HCL 50 MG TABLET PO PRN ×2 (10:00→16:34)
[2019-11-05] MEDS ORDERED: LIDOCAINE 5% PATCH TD SCH (10:30)
[2019-11-05] MEDS: FLUTICASONE/VILANTEROL 1 EACH BLST.W.DEV INH SCH (10:39)
[2019-11-05] MEDS: MULTIVIT, IRON, MIN NO. 8, FA TABLET PO SCH (10:39)
[2019-11-05] MEDS: POTASSIUM CHLORIDE 8 MEQ TAB.PRT.SR PO SCH (10:39)
[2019-11-05] MEDS: OMEGA-3 FATTY ACIDS/FISH OIL CAPSULE PO SCH ×2 (10:39→16:29)
--- NOTE | 2019-11-05 12:52 | NUR ---
Received patient awake in bed. Alert and oriented x3-4. Hard of hearing and legally blind. Continue pain management tramadol 50 mg PRN. tolerated well. Started therapy for ambulation, ADL, strenght and endurance. not in distress. will continue monitor
--- NOTE | 2019-11-05 15:31 | NUR ---
Patient durezol eye drops and posaconazole 100mg 3 tablets, not available in the pharmacy. aware. will continue monitor
[2019-11-05 16:47] VITALS: BP 132/61
[2019-11-05 19:54] VITALS: BP 114/52
[2019-11-05] MEDS: ATORVASTATIN 20 MG TABLET PO SCH (21:05)
[2019-11-06 04:42] VITALS: BP 130/59
--- NOTE | 2019-11-06 06:47 | NUR ---
Patient slept well. No complaints of pain at this time. All needs attended. Patient complaining regarding the dose of his Lipitor saying he usually takes 80mg before. Will endorse to oncoming shift to ff/joaquin w/ .
--- NOTE | 2019-11-06 07:24 | NUR ---
Patient noted resting in bed with eyes closed, no facial cues of pain, no signs of distress noted, call light in reach, bed locked and in lowest position, bed alarm in place, all needs met at this time
[2019-11-06] MEDS: DOCUSATE SODIUM 100 MG CAPSULE PO SCH ×2 (09:15→17:37)
[2019-11-06] MEDS: AMLODIPINE 5 MG TABLET PO SCH ×2 (09:16→21:27)
[2019-11-06] MEDS: ASPIRIN EC 81 MG TABLET.DR PO SCH (09:16)
[2019-11-06] MEDS: MULTIVIT, IRON, MIN NO. 8, FA TABLET PO SCH (09:16)
[2019-11-06] MEDS: OMEGA-3 FATTY ACIDS/FISH OIL CAPSULE PO SCH ×2 (09:17→17:35)
[2019-11-06] MEDS: TRAMADOL HCL 50 MG TABLET PO PRN (09:17)
[2019-11-06] MEDS: POTASSIUM CHLORIDE 8 MEQ TAB.PRT.SR PO SCH (09:17)
[2019-11-06] MEDS: FLUTICASONE/VILANTEROL 1 EACH BLST.W.DEV INH SCH (09:17)
[2019-11-06] MEDS: LIDOCAINE 5% PATCH TD SCH (09:18)
[2019-11-06] MEDS: ENOXAPARIN SODIUM 40 MG/0.4 ML DISP.SYRIN SQ SCH (09:31)
[2019-11-06 16:32] VITALS: BP 117/45
[2019-11-06 21:18] VITALS: BP 127/60
[2019-11-06] MEDS: ATORVASTATIN 20 MG TABLET PO SCH (21:27)
[2019-11-07] MEDS: TRAMADOL HCL 50 MG TABLET PO PRN ×3 (01:39→21:02)
--- NOTE | 2019-11-07 03:57 | NUR ---
Received patient in bed. AAO x4. Not in acute distress or SOB. Able to make needs known. On room air, tolerating well. No complaints of pain at this time. Physical assessment done. Fall prevention observed. Safety measures maintained. Bed in low and lock position, alarm on, side rails up x2 for safety. Call light and frequently used items within reach. Will continue to monitor and give care.
[2019-11-07 06:07] VITALS: BP 130/63
[2019-11-07 07:57] VITALS: BP 125/62
[2019-11-07] MEDS: ASPIRIN EC 81 MG TABLET.DR PO SCH (08:44)
[2019-11-07] MEDS: DOCUSATE SODIUM 100 MG CAPSULE PO SCH ×2 (08:44→17:35)
[2019-11-07] MEDS: MULTIVIT, IRON, MIN NO. 8, FA TABLET PO SCH (08:44)
[2019-11-07] MEDS: OMEGA-3 FATTY ACIDS/FISH OIL CAPSULE PO SCH ×2 (08:45→17:45)
[2019-11-07] MEDS: POTASSIUM CHLORIDE 8 MEQ TAB.PRT.SR PO SCH (08:45)
[2019-11-07] MEDS: AMLODIPINE 5 MG TABLET PO SCH ×2 (08:45→21:02)
[2019-11-07] MEDS: FLUTICASONE/VILANTEROL 1 EACH BLST.W.DEV INH SCH (08:46)
[2019-11-07] MEDS: LIDOCAINE 5% PATCH TD SCH (08:46)
[2019-11-07] MEDS: ENOXAPARIN SODIUM 40 MG/0.4 ML DISP.SYRIN SQ SCH (08:55)
[2019-11-07] MEDS ORDERED: MIRALAX 17 GM POWD.PACK PO PRN (10:15)
[2019-11-07 15:38] VITALS: BP 113/53
--- NOTE | 2019-11-07 15:40 | NUR ---
INDIVIDUALIZE OVERALL PLAN OF CARE
--- NOTE | 2019-11-07 19:30 | NUR ---
Patient received in bed, watching TV. Alert and oriented x 4. C/O pain upon assessment in right hip. Will medicate. Infectious disease consult pending. Will tell day shift nurse to f/u in the morning. Dressing lean dry and intact. Call light and frequently used items within reach. Will continue to monitor.
[2019-11-07] MEDS: ATORVASTATIN 20 MG TABLET PO SCH (21:02)
[2019-11-07 21:10] VITALS: BP 116/58
[2019-11-08 06:01] VITALS: BP 120/66
[2019-11-08 07:59] VITALS: BP 127/57
[2019-11-08] MEDS: MULTIVIT, IRON, MIN NO. 8, FA TABLET PO SCH (08:56)
[2019-11-08] MEDS: AMLODIPINE 5 MG TABLET PO SCH ×2 (08:56→20:46)
[2019-11-08] MEDS: OMEGA-3 FATTY ACIDS/FISH OIL CAPSULE PO SCH ×2 (08:56→17:12)
[2019-11-08] MEDS: ASPIRIN EC 81 MG TABLET.DR PO SCH (08:56)
[2019-11-08] MEDS: DOCUSATE SODIUM 100 MG CAPSULE PO SCH ×2 (08:56→17:12)
[2019-11-08] MEDS: POTASSIUM CHLORIDE 8 MEQ TAB.PRT.SR PO SCH (08:56)
[2019-11-08] MEDS: TRAMADOL HCL 50 MG TABLET PO PRN ×2 (08:56→20:46)
[2019-11-08] MEDS: FLUTICASONE/VILANTEROL 1 EACH BLST.W.DEV INH SCH (08:57)
[2019-11-08] MEDS: ENOXAPARIN SODIUM 40 MG/0.4 ML DISP.SYRIN SQ SCH (08:58)
[2019-11-08] MEDS: LIDOCAINE 5% PATCH TD SCH (08:58)
--- NOTE | 2019-11-08 12:11 | NUR ---
INTERDISCIPLINARY TEAM CONFERENCE
--- NOTE | 2019-11-08 15:44 | NUR ---
Received patient awake in stable condition. Continue pain management prior to therapy for ambulation and ADL activity. not in distress. will continue monitor
[2019-11-08 16:31] VITALS: BP 117/57
--- NOTE | 2019-11-08 19:30 | NUR ---
Alert and oriented x 4. C/O pain upon assessment in right hip. Will medicate. Family at bedside during assessment. Dressing clean dry and intact. Call light and frequently used items within reach. Will continue to monitor.
[2019-11-08] MEDS: ATORVASTATIN 20 MG TABLET PO SCH (20:46)
[2019-11-08 21:11] VITALS: BP 122/52
[2019-11-09 05:38] VITALS: BP 116/51
[2019-11-09 08:12] VITALS: BP 120/57
[2019-11-09] MEDS: ASPIRIN EC 81 MG TABLET.DR PO SCH (08:59)
[2019-11-09] MEDS: DOCUSATE SODIUM 100 MG CAPSULE PO SCH ×2 (08:59→16:56)
[2019-11-09] MEDS: POTASSIUM CHLORIDE 8 MEQ TAB.PRT.SR PO SCH (08:59)
[2019-11-09] MEDS: AMLODIPINE 5 MG TABLET PO SCH ×2 (08:59→20:09)
[2019-11-09] MEDS: MULTIVIT, IRON, MIN NO. 8, FA TABLET PO SCH (08:59)
[2019-11-09] MEDS: LIDOCAINE 5% PATCH TD SCH (08:59)
[2019-11-09] MEDS: OMEGA-3 FATTY ACIDS/FISH OIL CAPSULE PO SCH ×3 (09:00→16:56)
[2019-11-09] MEDS: FLUTICASONE/VILANTEROL 1 EACH BLST.W.DEV INH SCH (09:00)
[2019-11-09] MEDS: TRAMADOL HCL 50 MG TABLET PO PRN (09:02)
[2019-11-09] MEDS: ENOXAPARIN SODIUM 40 MG/0.4 ML DISP.SYRIN SQ SCH (09:09)
[2019-11-09 15:32] VITALS: BP 118/51
--- NOTE | 2019-11-09 19:30 | NUR ---
PATIENT ALERT ORIENTED, NO SOB NO CHEST PAIN. PATIENT HAS NO COMPLAIN OF PAIN AT THIS TIME. KEPT COMFORTABLE, CALL LIGHT WITHIN REACH.
[2019-11-09 20:02] VITALS: BP 128/50
[2019-11-09] MEDS: ATORVASTATIN 20 MG TABLET PO SCH (20:09)
[2019-11-10 04:30] VITALS: BP 127/67
--- NOTE | 2019-11-10 05:22 | NUR ---
PATIENT SLEPT MOST OF THE NIGHT, NO SOB NO CHEST PAIN, PATIENT HAS NO COMPLAIN OF PAIN AT THIS TIME, CONTINENT OF BLADDER, USES URINAL FOR BLADDER ELIMINATIONS, CONT TO MONITOR.
[2019-11-10 08:00] VITALS: BP 139/70
[2019-11-10] MEDS: AMLODIPINE 5 MG TABLET PO SCH ×2 (09:23→20:36)
[2019-11-10] MEDS: ASPIRIN EC 81 MG TABLET.DR PO SCH (09:23)
[2019-11-10] MEDS: DOCUSATE SODIUM 100 MG CAPSULE PO SCH ×2 (09:23→17:07)
[2019-11-10] MEDS: FLUTICASONE/VILANTEROL 1 EACH BLST.W.DEV INH SCH (09:25)
[2019-11-10] MEDS: ENOXAPARIN SODIUM 40 MG/0.4 ML DISP.SYRIN SQ SCH (09:28)
[2019-11-10] MEDS: LIDOCAINE 5% PATCH TD SCH (09:29)
[2019-11-10] MEDS: POTASSIUM CHLORIDE 8 MEQ TAB.PRT.SR PO SCH (09:57)
[2019-11-10] MEDS: TRAMADOL HCL 50 MG TABLET PO PRN ×2 (09:58→20:36)
[2019-11-10] MEDS: OMEGA-3 FATTY ACIDS/FISH OIL CAPSULE PO SCH ×2 (10:05→17:07)
[2019-11-10] MEDS: MULTIVIT, IRON, MIN NO. 8, FA TABLET PO SCH (12:45)
[2019-11-10 16:00] VITALS: BP 114/51
--- NOTE | 2019-11-10 18:56 | NUR ---
Patient AAO x4. No acute distress noted. Vital signs taken and stable for patient. No complains of pain at this time. Patient S/P right hip ORIFF; site with dry dressing in place intact and dry. Due medications administered as ordered and scheduled and tolerated well. Patient on PT/OT therapy as ordered. Compliant with care. Needs attended, safety measures in place, call light left at bed side, endorsed to next shift and will continue with care.
[2019-11-10 20:26] VITALS: BP 129/59
[2019-11-10] MEDS: ATORVASTATIN 20 MG TABLET PO SCH (20:36)
--- NOTE | 2019-11-11 05:01 | NUR ---
Received patient in bed. AAO x4. Not in acute distress or SOB. Able to make needs known. On room air. His at the bedside. Complained of pain on his right hip, rated 4/10 on numeric scale. Physical assessment done. All due medications given as ordered and well tolerated. PRN Tramadol 50 mg administered and effective. Pain assessed and reassessed after pain medication. Fall prevention observed. Safety measures maintained. All needs attended promptly. Bed in low and lock position, alarm on, side rails up x2 for safety. Call light and frequently used items within reach. Continue to monitor and will endorse to the oncoming nurse accordingly.
[2019-11-11 05:51] VITALS: BP 135/60
[2019-11-11] MEDS: MULTIVIT, IRON, MIN NO. 8, FA TABLET PO SCH (08:57)
[2019-11-11] MEDS: OMEGA-3 FATTY ACIDS/FISH OIL CAPSULE PO SCH ×2 (08:58→17:28)
[2019-11-11] MEDS: DOCUSATE SODIUM 100 MG CAPSULE PO SCH ×2 (08:58→17:28)
[2019-11-11] MEDS: POTASSIUM CHLORIDE 8 MEQ TAB.PRT.SR PO SCH (08:58)
[2019-11-11] MEDS: ASPIRIN EC 81 MG TABLET.DR PO SCH (08:58)
[2019-11-11] MEDS: AMLODIPINE 5 MG TABLET PO SCH ×2 (08:59→20:50)
[2019-11-11] MEDS: LIDOCAINE 5% PATCH TD SCH (09:00)
[2019-11-11] MEDS: FLUTICASONE/VILANTEROL 1 EACH BLST.W.DEV INH SCH (09:01)
[2019-11-11] MEDS: ENOXAPARIN SODIUM 40 MG/0.4 ML DISP.SYRIN SQ SCH (09:08)
[2019-11-11] MEDS: TRAMADOL HCL 50 MG TABLET PO PRN ×2 (09:17→17:39)
[2019-11-11 10:11] VITALS: BP 124/57
[2019-11-11 16:00] VITALS: BP 117/48
--- NOTE | 2019-11-11 18:54 | NUR ---
Patient seen and examined by Dr. Bryson with complain of right posterior thigh pain, MD ordered right lower extremity venous ultrasound.
[2019-11-11 19:45] VITALS: BP 126/58
--- NOTE | 2019-11-11 20:30 | NUR ---
Patient has stat order of wound culture from his right eye. Sample collected and sent to the lab.
[2019-11-11] MEDS: ATORVASTATIN 20 MG TABLET PO SCH (20:50)
--- NOTE | 2019-11-11 21:10 | NUR ---
Received patient in bed. AAO x4. Not in acute distress or SOB. Able to make needs known. On room air. His at the bedside. No Complain of pain at this time. Physical assessment done. All due medications given as ordered and well tolerated. Fall prevention observed. Safety measures maintained. All needs attended promptly. Bed in low and lock position, alarm on, side rails up x2 for safety. Call light and frequently used items within reach. Continue to monitor.
[2019-11-12 08:00] VITALS: BP 131/53
[2019-11-12] MEDS: DOCUSATE SODIUM 100 MG CAPSULE PO SCH ×2 (08:30→17:43)
[2019-11-12] MEDS: LIDOCAINE 5% PATCH TD SCH (08:30)
[2019-11-12] MEDS: POTASSIUM CHLORIDE 8 MEQ TAB.PRT.SR PO SCH (08:30)
[2019-11-12] MEDS: ASPIRIN EC 81 MG TABLET.DR PO SCH (08:30)
[2019-11-12] MEDS: FLUTICASONE/VILANTEROL 1 EACH BLST.W.DEV INH SCH (08:30)
[2019-11-12] MEDS: MULTIVIT, IRON, MIN NO. 8, FA TABLET PO SCH (08:30)
[2019-11-12] MEDS: OMEGA-3 FATTY ACIDS/FISH OIL CAPSULE PO SCH ×2 (08:31→17:43)
[2019-11-12] MEDS: AMLODIPINE 5 MG TABLET PO SCH ×2 (08:33→20:14)
[2019-11-12] MEDS: ENOXAPARIN SODIUM 40 MG/0.4 ML DISP.SYRIN SQ SCH (08:42)
[2019-11-12 15:06] VITALS: BP_SYST 120; BP_DIAS 50; BP_DIAS 53
--- NOTE | 2019-11-12 19:35 | NUR ---
pt in stable condition, c/o mild pain, no fever, no nausea and no vomiting.
[2019-11-12] MEDS: ATORVASTATIN 20 MG TABLET PO SCH (20:13)
[2019-11-12] MEDS: TRAMADOL HCL 50 MG TABLET PO PRN (20:14)
[2019-11-12 21:27] VITALS: BP 134/60
[2019-11-13 06:21] VITALS: BP 121/59
[2019-11-13 07:42] LABS: BASOPHILS % (AUTO) 0.8 % (0.0-2.0); EOSINOPHILS # (AUTO) 0.4 K/uL (0.0-0.7); EOSINOPHILS % (AUTO) 7.6 % (0.0-7.0); HEMATOCRIT 30.1 % (36.7-47.1); HEMOGLOBIN 9.8 g/dL (12.5-16.3); LYMPHOCYTES # (AUTO) 1.5 K/uL (20.0-40.0); LYMPHOCYTES % (AUTO) 30.6 % (20.5-51.5); MEAN CORPUSCULAR HEMOGLOBIN 29.3 uug (23.8-33.4); MEAN CORPUSCULAR HGB CONC 32 g/dL (32.5-36.3); MEAN CORPUSCULAR VOLUME 90.2 fL (73.0-96.2); MONOCYTES # (AUTO) 0.5 K/uL (2.0-10.0); MONOCYTES % (AUTO) 9.6 % (0.0-11.0); NEUTROPHILS # (AUTO) 2.5 K/uL (1.8-8.9); NEUTROPHILS % (AUTO) 51.4 % (38.5-71.5); PLATELET COUNT (AUTO) 290 K/uL (152-348); RED BLOOD CELL COUNT(AUTO) 3.33 MIL/uL (4.06-5.63); WHITE BLOOD COUNT (AUTO) 4.8 K/uL (3.6-10.2)
[2019-11-13 07:59] LABS: BILIRUBIN,TOTAL 0.4 mg/dL (0.2-1.0); CREATININE 0.8 mg/dL (0.6-1.3); MAGNESIUM 1.9 mg/dL (1.8-2.4); PHOSPHOROUS 3.7 mg/dL (2.5-4.9); POTASSIUM 3.6 mmol/L (3.5-5.1); TOTAL PROTEIN, SERUM 5.9 g/dL (6.4-8.2)
[2019-11-13 08:19] VITALS: BP 133/62
[2019-11-13] MEDS: LIDOCAINE 5% PATCH TD SCH (08:47)
[2019-11-13] MEDS: DOCUSATE SODIUM 100 MG CAPSULE PO SCH ×2 (08:48→17:32)
[2019-11-13] MEDS: MULTIVIT, IRON, MIN NO. 8, FA TABLET PO SCH (08:48)
[2019-11-13] MEDS: POTASSIUM CHLORIDE 8 MEQ TAB.PRT.SR PO SCH (08:48)
[2019-11-13] MEDS: ASPIRIN EC 81 MG TABLET.DR PO SCH (08:48)
[2019-11-13] MEDS: AMLODIPINE 5 MG TABLET PO SCH ×2 (08:48→20:44)
[2019-11-13] MEDS: OMEGA-3 FATTY ACIDS/FISH OIL CAPSULE PO SCH ×2 (08:48→17:32)
[2019-11-13] MEDS: FLUTICASONE/VILANTEROL 1 EACH BLST.W.DEV INH SCH (08:49)
[2019-11-13] MEDS: ENOXAPARIN SODIUM 40 MG/0.4 ML DISP.SYRIN SQ SCH (08:56)
--- NOTE | 2019-11-13 11:56 | NUR ---
Received patient sitting up in bed, Pt. is AAOx4. No acute distress. Able to express needs. Vital signs stable for patient. Pt. complained of generalized pain Tramadol 50mg PO 1 tab PRN administered as ordered and effective. Right hip surgical site with original dressing; intact and dry. No pain or swelling on the site. Due medications administered and tolerated well. Pt. ambulatory with a walker and 1 person assist. safety needs in place, needs attended. Patient went out for appointment with and eyewear manufacturing supervisor at 11:00am.
--- NOTE | 2019-11-13 13:00 | NUR ---
Patient came back from appointment at 1:00pm. No new orders for now. with a F/U appointment for December 09, and case preparer and liner aware.
[2019-11-13 16:17] VITALS: BP 124/58
[2019-11-13 20:08] VITALS: BP 125/63
[2019-11-13] MEDS: ATORVASTATIN 20 MG TABLET PO SCH (20:43)
[2019-11-13] MEDS: TRAMADOL HCL 50 MG TABLET PO PRN (20:48)
--- NOTE | 2019-11-13 21:26 | NUR ---
Received pt resting in bed. AAO x4. at bedside. Pt ambulated in the hallway and is now back to bed. No acute distress noted. C/o 5/10 pain on right thigh, PRN pain med and other due meds given as ordered. Safety measures maintained. Call light and personal items within reach. Will continue to monitor.
[2019-11-14 06:27] VITALS: BP 124/58
[2019-11-14 08:00] VITALS: BP 131/63
[2019-11-14] MEDS: ENOXAPARIN SODIUM 40 MG/0.4 ML DISP.SYRIN SQ SCH (08:37)
[2019-11-14] MEDS: AMLODIPINE 5 MG TABLET PO SCH ×2 (08:37→20:21)
[2019-11-14] MEDS: MULTIVIT, IRON, MIN NO. 8, FA TABLET PO SCH (08:37)
[2019-11-14] MEDS: DOCUSATE SODIUM 100 MG CAPSULE PO SCH ×2 (08:38→16:59)
[2019-11-14] MEDS: FLUTICASONE/VILANTEROL 1 EACH BLST.W.DEV INH SCH (08:38)
[2019-11-14] MEDS: LIDOCAINE 5% PATCH TD SCH (08:38)
[2019-11-14] MEDS: ASPIRIN EC 81 MG TABLET.DR PO SCH (08:38)
[2019-11-14] MEDS: POTASSIUM CHLORIDE 8 MEQ TAB.PRT.SR PO SCH (08:52)
[2019-11-14] MEDS: TRAMADOL HCL 50 MG TABLET PO PRN ×2 (08:53→20:22)
[2019-11-14] MEDS: OMEGA-3 FATTY ACIDS/FISH OIL CAPSULE PO SCH ×2 (08:53→16:59)
[2019-11-14 16:12] VITALS: BP 131/63
--- NOTE | 2019-11-14 19:00 | NUR ---
Patient remains alert, oriented x 3, not in any distress, on room air. Patient complained of pain on right thigh, given PRN pain medication as ordered with noted relief. Due medications administered and tolerated well. Needs attended to promptly. Endorsed accordingly to night assistant nurse.
[2019-11-14 19:56] VITALS: BP 125/63
[2019-11-14] MEDS: ATORVASTATIN 20 MG TABLET PO SCH (20:21)
--- NOTE | 2019-11-14 22:25 | NUR ---
awake alert and oriented x3-4 Watching TV @ beginning of shift. In good spirits. VSS. Tolerated po meds well. Fall precautions maintained. Right eye blind. Call pearl within reach. Attended to needs. Will monitor patient.
[2019-11-15 06:28] VITALS: BP 120/66
--- NOTE | 2019-11-15 06:54 | NUR ---
sleeping most of the shift. aaox4 no acute distress noted. denies any pain nor any discomfort. Fall precautions maintained. Siderails up for safety. VSS.
[2019-11-15 08:27] VITALS: BP 128/59
[2019-11-15] MEDS: MULTIVIT, IRON, MIN NO. 8, FA TABLET PO SCH (09:33)
[2019-11-15] MEDS: FLUTICASONE/VILANTEROL 1 EACH BLST.W.DEV INH SCH (09:33)
[2019-11-15] MEDS: DOCUSATE SODIUM 100 MG CAPSULE PO SCH ×2 (09:33→17:26)
[2019-11-15] MEDS: POTASSIUM CHLORIDE 8 MEQ TAB.PRT.SR PO SCH (09:33)
[2019-11-15] MEDS: ASPIRIN EC 81 MG TABLET.DR PO SCH (09:33)
[2019-11-15] MEDS: OMEGA-3 FATTY ACIDS/FISH OIL CAPSULE PO SCH ×2 (09:33→17:27)
[2019-11-15] MEDS: LIDOCAINE 5% PATCH TD SCH (09:35)
[2019-11-15] MEDS: ENOXAPARIN SODIUM 40 MG/0.4 ML DISP.SYRIN SQ SCH (09:40)
[2019-11-15] MEDS: AMLODIPINE 5 MG TABLET PO SCH ×2 (09:41→20:20)
--- NOTE | 2019-11-15 13:23 | NUR ---
INTERDISCIPLINARY TEAM CONFERENCE
[2019-11-15 15:39] VITALS: BP 132/58
[2019-11-15 19:39] VITALS: BP 121/52
--- NOTE | 2019-11-15 19:53 | NUR ---
Received patient in bed. AAO x4. Not in acute distress or SOB. Able to make needs known. On room air. No Complain of pain at this time. Physical assessment done. Fall prevention observed. Safety measures maintained. Bed in low and lock position, alarm on, side rails up x2 for safety. Call light and frequently used items within reach. Continue to monitor.
[2019-11-15] MEDS: ATORVASTATIN 20 MG TABLET PO SCH (20:20)
[2019-11-15] MEDS: TRAMADOL HCL 50 MG TABLET PO PRN (20:20)
[2019-11-16 06:14] VITALS: BP 129/59
--- NOTE | 2019-11-16 06:27 | NUR ---
End of the shift report: patient was stable during the shift and had a good sleep last night. Not in acute distress or SOB. On room air. Complained of mild pain on his right hip, asked for Tramadol. Tramadol 50 mg administered and effective. Physical assessment done. Has original dressing on his right hip surgical site, prefers to keep the original dressing until his appointment with his surgeon on Sunday 11/18. All due medications given as ordered and well tolerated. Pain assessed and reassessed after pain medication. Fall prevention observed. Safety measures maintained. All needs attended promptly. Bed in low and lock position, alarm on, side rails up x2 for safety. Call light and frequently used items within reach. Continue to monitor and will endorse to the oncoming nurse accordingly.
--- NOTE | 2019-11-16 07:58 | NUR ---
Patient noted resting in bed with eyes closed, no facial cues of pain noted, call light in reach, bed locked and in lowest positon, all needs met at this time
[2019-11-16 09:00] VITALS: BP 130/58
[2019-11-16] MEDS: DOCUSATE SODIUM 100 MG CAPSULE PO SCH ×2 (09:28→17:31)
[2019-11-16] MEDS: LIDOCAINE 5% PATCH TD SCH (09:28)
[2019-11-16] MEDS: FLUTICASONE/VILANTEROL 1 EACH BLST.W.DEV INH SCH (09:28)
[2019-11-16] MEDS: MULTIVIT, IRON, MIN NO. 8, FA TABLET PO SCH (09:28)
[2019-11-16] MEDS: POTASSIUM CHLORIDE 8 MEQ TAB.PRT.SR PO SCH (09:29)
[2019-11-16] MEDS: OMEGA-3 FATTY ACIDS/FISH OIL CAPSULE PO SCH ×2 (09:29→17:32)
[2019-11-16] MEDS: ASPIRIN EC 81 MG TABLET.DR PO SCH (09:29)
[2019-11-16] MEDS: ENOXAPARIN SODIUM 40 MG/0.4 ML DISP.SYRIN SQ SCH (09:40)
[2019-11-16] MEDS: AMLODIPINE 5 MG TABLET PO SCH ×2 (09:41→20:20)
[2019-11-16] MEDS: TRAMADOL HCL 50 MG TABLET PO PRN ×2 (09:41→20:24)
[2019-11-16 19:20] VITALS: BP 120/56
[2019-11-16] MEDS: ATORVASTATIN 20 MG TABLET PO SCH (20:20)
--- NOTE | 2019-11-16 20:50 | NUR ---
Received pt resting in bed. AAO x4. No acute distress noted. C/o 7/10 pain on the right thigh, PRN pain med given. Due meds given as ordered. Safety measures maintained. Call light and personal items within reach. Will continue to monitor.
[2019-11-16 20:57] VITALS: BP 142/59
[2019-11-17] MEDS ORDERED: TRAMADOL HCL 50 MG TABLET PO PRN (01:30)
[2019-11-17] MEDS: ACETAMINOPHEN 325 MG TABLET PO PRN ×3 (07:50→22:37)
[2019-11-17] MEDS: MULTIVIT, IRON, MIN NO. 8, FA TABLET PO SCH (08:00)
[2019-11-17] MEDS: AMLODIPINE 5 MG TABLET PO SCH ×2 (08:00→20:19)
[2019-11-17] MEDS: ASPIRIN EC 81 MG TABLET.DR PO SCH (08:00)
[2019-11-17] MEDS: FLUTICASONE/VILANTEROL 1 EACH BLST.W.DEV INH SCH (08:00)
[2019-11-17] MEDS: OMEGA-3 FATTY ACIDS/FISH OIL CAPSULE PO SCH ×2 (08:01→16:31)
[2019-11-17] MEDS: POTASSIUM CHLORIDE 8 MEQ TAB.PRT.SR PO SCH (08:01)
[2019-11-17] MEDS: DOCUSATE SODIUM 100 MG CAPSULE PO SCH ×2 (08:01→16:31)
[2019-11-17] MEDS: LIDOCAINE 5% PATCH TD SCH (08:01)
[2019-11-17 09:00] VITALS: BP 130/56
--- NOTE | 2019-11-17 09:40 | NUR ---
Patient noted sitting up in bed, complaints of pain 10/10 in right hip/thigh, MD paredes called with orders for X-ray of right hip and femur, PRN pain medication given, call light in reach, bed locked and in lowest positon, all needs met at this time
[2019-11-17 18:22] VITALS: BP 130/57
[2019-11-17 19:52] VITALS: BP 123/54
[2019-11-17] MEDS: ATORVASTATIN 20 MG TABLET PO SCH (20:19)
--- NOTE | 2019-11-17 20:33 | NUR ---
Received pt resting in bed and watching tv. AAO x4. No acute distress noted. Due meds given as ordered. Safety measures maintained. Call light and personal items within reach. Will continue to monitor.
[2019-11-18 06:07] VITALS: BP 131/60
[2019-11-18 09:30] VITALS: BP 129/60
[2019-11-18 09:32] VITALS: BP 129/60
[2019-11-18] MEDS: ASPIRIN EC 81 MG TABLET.DR PO SCH (09:32)
[2019-11-18] MEDS: OMEGA-3 FATTY ACIDS/FISH OIL CAPSULE PO SCH (09:32)
[2019-11-18] MEDS: MULTIVIT, IRON, MIN NO. 8, FA TABLET PO SCH (09:32)
[2019-11-18] MEDS: FLUTICASONE/VILANTEROL 1 EACH BLST.W.DEV INH SCH (09:32)
[2019-11-18] MEDS: AMLODIPINE 5 MG TABLET PO SCH (09:32)
[2019-11-18] MEDS: LIDOCAINE 5% PATCH TD SCH (09:33)
[2019-11-18] MEDS: DOCUSATE SODIUM 100 MG CAPSULE PO SCH (09:33)
[2019-11-18] MEDS: POTASSIUM CHLORIDE 8 MEQ TAB.PRT.SR PO SCH (09:33)
[2019-11-18] MEDS: ACETAMINOPHEN 325 MG TABLET PO PRN ×2 (09:47→16:01)
--- NOTE | 2019-11-18 10:00 | NUR ---
Patient is AAO x 4. Able to express needs. NO acute distress noted. Vital signs taken and stable. Due medications administered as ordered and scheduled, tolerated well. Right hip surgery with dressing in place, intact and dry, No bleeding noted. Pt. ablulatory with a walker; on PT/OT therapy. Needs attended, safety measures in place, call light left at bed side and will continue with care.
--- NOTE | 2019-11-18 13:00 | NUR ---
Patient picked up by transportation for appointment with Dr. Johnson (Ortho) for F/U appointment.
--- NOTE | 2019-11-18 17:36 | NUR ---
Patient came back from appointment at 15:35Pm with NO new order from Dr. Johnson (ortho); stated Patient able to ambulate without any restrictions as ordered by MD. Dressing removed from surgical site Patient and stated they want to leave as soon as possible after receiving discharge paper works and did not sign discharge papers; uncooperative with discharge instructions and stated they are in a hurry to leave. Informed patient and family to go to patient room for discharge teaching. Discharge teaching provided to patient and ; they both stated understanding also stated they are very aware of home medications and will F/U with PCP and HH. All prescription orders faxed to patient's pharmacy. 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 Discharge pictures taken. All belongings taken by patient. Patient tried to leave on own explained to patient and we have to discharge patient on wheel chair. Patient assisted to car on w/c and discharged at 16:15Pm.
== END 2019-11-18 16:15 | disposition home health service (06) | DRG 559 ==
PROVIDERS: ADMIT Physical Medicine & Rehabilitation Pain Medicine; ATTEND Physical Medicine & Rehabilitation Pain Medicine
DX: S72.001D Fracture of unspecified part of neck of right femur, subsequent encounter for closed fracture with routine healing (principal); E43 Unspecified severe protein-calorie malnutrition; D68.59 Other primary thrombophilia; E87.1 Hypo-osmolality and hyponatremia; B48.8 Other specified mycoses; W19.XXXD Unspecified fall, subsequent encounter; D64.9 Anemia, unspecified; E03.9 Hypothyroidism, unspecified; E78.5 Hyperlipidemia, unspecified; I25.10 Atherosclerotic heart disease of native coronary artery without angina pectoris; I10 Essential (primary) hypertension; I71.4 Abdominal aortic aneurysm, without rupture; I73.9 Peripheral vascular disease, unspecified; J44.9 Chronic obstructive pulmonary disease, unspecified; H57.11 Ocular pain, right eye; Z96.642 Presence of left artificial hip joint; H54.61 Unqualified visual loss, right eye, normal vision left eye; I67.9 Cerebrovascular disease, unspecified; K59.00 Constipation, unspecified; M19.90 Unspecified osteoarthritis, unspecified site
CPT/HCPCS: 36415; 73502; 73551; 83735; 84100; 85025; 87070; A4663; A9150; J1650